=== PATIENT | female | born 1985 | race Hispanic/Latino ===

== ENCOUNTER 2018-04-07 17:33 | Outpatient (CLI) | payer MEDICAID ==
[2018-04-07 17:56] VITALS: BP 131/80
== END 2018-04-07 19:00 | disposition home or self-care (01) ==
LOC: TRG 17:33
PROVIDERS: ATTEND Obstetrics & Gynecology
DX: O47.03 False labor before 37 completed weeks of gestation, third trimester (principal); Z3A.36 36 weeks gestation of pregnancy

== ENCOUNTER 2018-04-22 18:26 | Inpatient (IN) | payer MEDICAID ==
--- NOTE | 2018-04-22 18:41 | History and Physical Report ---
History of Present Illness Date of examination: 04/22/18 Date of admission: 04/22/18 18:26 Chief complaint: here for IOL History of present illness: As per nurse extender Pat mina in the office today via phone call: received call from Dr. Sparrow @ [facility], patient turned in 24h urine with 394mg of protein. They recommend patient be delivered for mild pre-e. Hospital called and patient scheduled for PM induction tonight. Patient called and made aware of plan, she agrees to scheduled IOL at this time. Addressed issues with patient requesting primary c/s at last appointment - pt states she is OK with IOL tonight. Advised to eat prior to arrival. Dr. Boateng aware. Pt had discussed with MW wanting a primary c/s because she feared she would fail a MOI. I advised her that this is the best option to have a MOI and if she fails or if there is a maternal or obstetrical indication for c/s then she will have one. Pt expressed understanding and questions were addressed and answered. Pt was scheduled for IOL at 2030pm but in her excitement arrived early. I d/w pt and support person nature of serial IOL and what to expect and again all questions were addressed and answered. Pt not present at time of bedside discussion. I advised that she let the RN taking care of her know if she has any other questions. 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 Abnormal PAP: negative NAYELI Exposure: negative Infertility: negative Uterine Anomaly: negative Uterine Surgery (not C/S): negative Other Gynecologic Problems: negative Medical History Comments: PCOS-dx'd since age 18 Family Hx: DM Heart dz HTN Social Hx: no e/t/d Infection History Hx of STD: none Genetic History Congenital Heart Defect: Mom: no Dad: no Leilani Disease: Mom: no Dad: no Thalassemia Mom: no Dad: no Neural Tube Defect Mom: no Dad: no Down's Syndrome Mom: no Dad: no Joseluis-Sachs Mom: no Dad: no Sickle Cell Disease/Trait Mom: no Dad: no Hemophilia Mom: no Dad: no Muscular Dystrophy Mom: no Dad: no Cystic Fibrosis Mom: no Dad: no Traverse Chorea Mom: no Dad: no Mental Retardation Mom: no Dad: no Fragile X Mom: no Dad: no Other Genetic/Chromosomal Disorder Mom: no Dad: no Child w/other defect Mom: no Dad: no Enviromental Exposures Xray Exposure: no Medication, drug, or alcohol use since LMP: no Chemical/Other Exposure: no Exposure to Cat Liter: no Hx of Parvovirus (Fifth Disease): no Occupational Exposure to Children: none Active Medications (reviewed today): DIFLUCAN 150 MG ORAL TABLET (FLUCONAZOLE) 1 tab po times one Current Allergies (reviewed today): No known allergies Past History Past Medical History: other (see hpi) Past Surgical History: other (see hpi) 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 Negative: tenderness Deep Tendon Reflex Grade: Normal +2 - Obstetrical Cervical Dilatation: 0 (post/ and soft/ dimple palated at the ext os) Cervical Effacement Percentage: 60 station: -2 Uterine Contraction Pattern: Regular Uterine Tone Measurement Phase: Resting Uterine Contraction Intensity: Mild Results All other labs normal. Assessment and Plan - Patient Problems (1) 38 weeks gestation of Current Visit: Yes Status: Acute (2) Mild pre-eclampsia Current Visit: Yes Status: Acute Plan to address problem: - bps in office day of urine collection was normal and she has not had elevated blood pressures in the office. The 24hr protein was >300mg and hence her dz of pre e mild at best -serial IOl d/w pt and and all questions were addressed and answered.
[2018-04-22] MEDS ORDERED: ZOFRAN IV PRN (18:44)
[2018-04-22] MEDS ORDERED: BRETHINE IVP PRN (18:44)
[2018-04-22] MEDS ORDERED: XYLOCAINE 2% INFILTRATI ONE (18:44)
[2018-04-22] MEDS ORDERED: POLYCILLIN/NS 2 GM/100 ML 2 GM/100 ML BAG IV ONE (18:44)
[2018-04-22] MEDS ORDERED: ePHEDrine SULFATE IV PRN (18:44)
[2018-04-22] MEDS ORDERED: BRETHINE SUB-Q PRN (18:44)
[2018-04-22] MEDS ORDERED: MINERAL OIL PO PRN (18:44)
[2018-04-22] MEDS ORDERED: PITOCin/NS 20 UNIT/1000ML DRIP 20 UNITS/1,000 ML BAG IV SCH (19:00)
[2018-04-22] MEDS ORDERED: PITOCin/NS 30 UNIT/500ML 30 UNITS/500 ML BAG IV SCH (19:00)
[2018-04-22] MEDS ORDERED: CERVIDIL VG ONE (20:30)
[2018-04-22 21:35] LABS: Hematocrit 30.5 % (30.3-42.9); Hemoglobin 10.2 gm/dl (10.1-14.3); Mean Corpuscular HGB Conc 34 % (30-34); Mean Corpuscular Hemoglobin 28 pg (28-32); Mean Corpuscular Volume 84 fl (79-97); Platelet Count 292 K/mm3 (140-440); Red Blood Count 3.62 M/mm3 (3.65-5.03); Red Cell Distribution Width 14.4 % (13.2-15.2)
[2018-04-22 21:51] LABS: Bilirubin,Urine NEG (Negative); Blood,Urine SM (Negative); Color,Urine Yellow (Yellow); Mucus,Urine 2+ /HPF; Urobilinogen,Urine < 2.0 mg/dL (<2.0)
[2018-04-22 21:54] LABS: Alanine Aminotransferase 11 units/L (7-56); Uric Acid 5.2 mg/dL (3.5-7.6)
[2018-04-22] MEDS ORDERED: AMPICILLIN/NS 1 GM/50 ML 1 GM/50 ML BAG IV SCH (22:46)
[2018-04-23] MEDS: SUBLIMAZE IV PRN ×3 (01:33→06:36)
[2018-04-23] MEDS ORDERED: POLYCILLIN/NS 2 GM/100 ML 2 GM/100 ML BAG IV ONE (03:50)
[2018-04-23] MEDS: LACTATED RINGERS 1,000 ML IV SCH ×3 (04:01→10:06)
--- NOTE | 2018-04-23 05:48 | Progress Note ---
Assessment and Plan - Patient Problems (1) Mild pre-eclampsia Onset Date: ~04/23/18 Current Visit: Yes Status: Acute Qualifiers: Trimester: third trimester Qualified Code(s): O14.03 - Mild to moderate pre -eclampsia, third trimester Plan to address problem: Pt OOB to toilet when SROM occurred Clear fluid SVE 1,90,-1 Cervidil removed. Will get NST then OOB for AM care and diet. Plan to start pitocin when AM toilet & diet completed. All questions addressed and answered. Subjective - Subjective Date of service: 04/23/18 (called to room with c/o ROM) Patient reports: loss of fluid, contractions Objective - Vital Signs Vital Signs: Vital Signs - 12hr 04/22/18 04/22/18 04/22/18 19:51 19:56 19:58 Temperature 98.2 F Pulse Rate 80 74 78 Respiratory 18 Rate Blood Pressure 125/74 Blood Pressure 125/74 [Right] O2 Sat by Pulse 97 97 Oximetry 04/22/18 04/22/18 04/22/18 20:03 20:08 20:13 Temperature Pulse Rate 81 85 95 H Respiratory Rate Blood Pressure Blood Pressure [Right] O2 Sat by Pulse 97 98 97 Oximetry 04/22/18 04/22/18 04/22/18 20:18 20:23 20:28 Temperature Pulse Rate 86 86 85 Respiratory Rate Blood Pressure Blood Pressure [Right] O2 Sat by Pulse 97 96 97 Oximetry 04/22/18 04/22/18 04/22/18 21:33 21:38 21:43 Temperature Pulse Rate 71 84 83 Respiratory Rate Blood Pressure Blood Pressure [Right] O2 Sat by Pulse 98 99 98 Oximetry 04/22/18 04/22/18 04/22/18 21:48 21:53 21:58 Temperature Pulse Rate 75 83 87 Respiratory Rate Blood Pressure Blood Pressure [Right] O2 Sat by Pulse 98 98 98 Oximetry 04/22/18 04/22/18 04/22/18 22:03 22:08 22:13 Temperature Pulse Rate 84 84 74 Respiratory Rate Blood Pressure Blood Pressure [Right] O2 Sat by Pulse 98 99 98 Oximetry 04/22/18 04/22/18 04/22/18 22:18 22:23 22:28 Temperature Pulse Rate 75 75 75 Respiratory Rate Blood Pressure Blood Pressure [Right] O2 Sat by Pulse 98 98 97 Oximetry 04/22/18 04/22/18 04/22/18 22:33 22:37 22:38 Temperature Pulse Rate 73 76 73 Respiratory Rate Blood Pressure 134/76 Blood Pressure [Right] O2 Sat by Pulse 98 98 Oximetry 04/22/18 04/22/18 04/22/18 22:43 22:48 22:53 Temperature Pulse Rate 72 81 72 Respiratory Rate Blood Pressure Blood Pressure [Right] O2 Sat by Pulse 97 98 98 Oximetry 04/22/18 04/22/18 04/22/18 22:58 23:03 23:08 Temperature Pulse Rate 77 77 83 Respiratory Rate Blood Pressure Blood Pressure [Right] O2 Sat by Pulse 97 98 96 Oximetry 04/22/18 04/22/18 04/22/18 23:13 23:18 23:23 Temperature Pulse Rate 78 74 74 Respiratory Rate Blood Pressure Blood Pressure [Right] O2 Sat by Pulse 97 97 97 Oximetry 04/22/18 04/22/18 04/22/18 23:31 23:36 23:37 Temperature Pulse Rate 67 75 77 Respiratory Rate Blood Pressure 125/88 Blood Pressure [Right] O2 Sat by Pulse 98 98 Oximetry 04/22/18 04/22/18 04/22/18 23:41 23:46 23:51 Temperature Pulse Rate 77 76 72 Respiratory Rate Blood Pressure Blood Pressure [Right] O2 Sat by Pulse 98 97 97 Oximetry 04/22/18 04/23/18 04/23/18 23:56 00:01 00:06 Temperature Pulse Rate 69 68 71 Respiratory Rate Blood Pressure Blood Pressure [Right] O2 Sat by Pulse 97 98 98 Oximetry 04/23/18 04/23/18 04/23/18 00:11 00:16 00:21 Temperature Pulse Rate 69 80 74 Respiratory Rate Blood Pressure Blood Pressure [Right] O2 Sat by Pulse 98 98 97 Oximetry 04/23/18 04/23/18 04/23/18 00:26 00:31 00:36 Temperature Pulse Rate 71 66 71 Respiratory Rate Blood Pressure Blood Pressure [Right] O2 Sat by Pulse 98 97 98 Oximetry 04/23/18 04/23/18 04/23/18 00:37 00:41 00:46 Temperature Pulse Rate 68 77 67 Respiratory Rate Blood Pressure 128/75 Blood Pressure [Right] O2 Sat by Pulse 97 97 Oximetry 04/23/18 04/23/18 04/23/18 00:51 00:56 01:01 Temperature Pulse Rate 68 69 63 Respiratory Rate Blood Pressure Blood Pressure [Right] O2 Sat by Pulse 98 97 98 Oximetry 04/23/18 04/23/18 04/23/18 01:06 01:11 01:16 Temperature Pulse Rate 67 69 73 Respiratory Rate Blood Pressure Blood Pressure [Right] O2 Sat by Pulse 96 97 98 Oximetry 04/23/18 04/23/18 04/23/18 01:21 01:26 01:31 Temperature Pulse Rate 64 67 64 Respiratory Rate Blood Pressure Blood Pressure [Right] O2 Sat by Pulse 97 98 98 Oximetry 04/23/18 04/23/18 04/23/18 01:33 01:38 01:43 Temperature Pulse Rate 66 56 L Respiratory 18 Rate Blood Pressure 155/112 145/77 Blood Pressure [Right] O2 Sat by Pulse 99 98 Oximetry 04/23/18 04/23/18 04/23/18 01:48 01:53 01:58 Temperature Pulse Rate 63 65 69 Respiratory Rate Blood Pressure Blood Pressure [Right] O2 Sat by Pulse 97 97 97 Oximetry 04/23/18 04/23/18 04/23/18 02:03 02:08 02:13 Temperature Pulse Rate 58 L 61 66 Respiratory 18 Rate Blood Pressure Blood Pressure [Right] O2 Sat by Pulse 97 97 97 Oximetry 04/23/18 04/23/18 04/23/18 02:14 02:18 02:23 Temperature Pulse Rate 67 63 59 L Respiratory Rate Blood Pressure 136/83 Blood Pressure [Right] O2 Sat by Pulse 98 99 Oximetry 04/23/18 04/23/18 04/23/18 02:28 02:33 02:38 Temperature Pulse Rate 64 61 60 Respiratory Rate Blood Pressure Blood Pressure [Right] O2 Sat by Pulse 98 98 100 Oximetry 04/23/18 04/23/18 04/23/18 02:43 02:45 02:48 Temperature Pulse Rate 70 56 L 69 Respiratory Rate Blood Pressure 137/77 Blood Pressure [Right] O2 Sat by Pulse 100 100 Oximetry 04/23/18 04/23/18 04/23/18 02:53 02:59 03:04 Temperature Pulse Rate 73 67 60 Respiratory Rate Blood Pressure Blood Pressure [Right] O2 Sat by Pulse 99 99 100 Oximetry 04/23/18 04/23/18 04/23/18 03:09 03:14 03:19 Temperature Pulse Rate 73 69 67 Respiratory Rate Blood Pressure Blood Pressure [Right] O2 Sat by Pulse 99 98 99 Oximetry 04/23/18 04/23/18 04/23/18 03:24 03:29 03:34 Temperature Pulse Rate 69 78 69 Respiratory Rate Blood Pressure Blood Pressure [Right] O2 Sat by Pulse 98 98 100 Oximetry 04/23/18 04/23/18 04/23/18 03:39 03:45 04:05 Temperature Pulse Rate 74 63 Respiratory 18 Rate Blood Pressure Blood Pressure [Right] O2 Sat by Pulse 99 98 Oximetry 04/23/18 04/23/18 04/23/18 04:10 04:14 04:15 Temperature Pulse Rate 60 67 65 Respiratory Rate Blood Pressure 128/80 Blood Pressure [Right] O2 Sat by Pulse 97 97 Oximetry 04/23/18 04/23/18 04/23/18 04:20 04:25 04:30 Temperature Pulse Rate 62 65 69 Respiratory Rate Blood Pressure Blood Pressure [Right] O2 Sat by Pulse 98 98 97 Oximetry 04/23/18 04/23/18 04/23/18 04:35 04:40 04:45 Temperature Pulse Rate 67 64 71 Respiratory Rate Blood Pressure Blood Pressure [Right] O2 Sat by Pulse 98 99 99 Oximetry 04/23/18 04/23/18 04/23/18 04:50 04:55 05:00 Temperature Pulse Rate 69 68 62 Respiratory Rate Blood Pressure Blood Pressure [Right] O2 Sat by Pulse 98 97 98 Oximetry 04/23/18 04/23/18 04/23/18 05:05 05:10 05:12 Temperature Pulse Rate 71 69 67 Respiratory Rate Blood Pressure 154/82 Blood Pressure [Right] O2 Sat by Pulse 98 98 Oximetry 04/23/18 04/23/18 04/23/18 05:15 05:20 05:25 Temperature Pulse Rate 69 67 71 Respiratory Rate Blood Pressure Blood Pressure [Right] O2 Sat by Pulse 99 100 96 Oximetry - Exam Breasts: deferred Cardiovascular: Regular rate Lungs: Clear to auscultation, Normal air movement Abdomen: Present: normal appearance, soft. Absent: distention, tenderness Uterus: Present: normal FHR: auscultation normal, category 1 Uterine Contraction Monitor Mode: External Cervical Dilatation: 1 (SROM clear fluid) Cervical Effacement Percentage: 90 (cervidil removed) station: -1 Uterine Contraction Pattern: Regular Uterine Tone Measurement Phase: Resting Uterine Contraction Intensity: Mild Extremities: edema Deep Tendon Reflex Grade: Normal +2 - Labs Labs: Abnormal Labs 04/22/18 04/22/18 21:13 21:13 WBC 12.9 H RBC 3.62 L Lactate Dehydrogenase 214 H Laboratory Results - last 24 hr 04/22/18 04/22/18 04/22/18 21:13 21:13 21:13 WBC 12.9 H RBC 3.62 L Hgb 10.2 Hct 30.5 MCV 84 MCH 28 MCHC 34 RDW 14.4 Plt Count 292 Creatinine Estimated GFR Uric Acid AST ALT Lactate Dehydrogenase Urine Color Yellow Urine Turbidity Clear Urine pH 5.0 Ur Specific [place] 1.026 Urine Protein 100 mg/dl Urine Glucose (UA) Neg Urine Ketones Neg Urine Blood Sm Urine Nitrite Neg Urine Bilirubin Neg Urine Urobilinogen < 2.0 Ur Leukocyte Esterase Sm Urine WBC (Auto) 3.0 Urine RBC (Auto) 4.0 U Epithel Cells (Auto) 3.0 Urine Mucus 2+ Blood Type A POSITIVE Antibody Screen Negative 04/22/18 21:13 WBC RBC Hgb Hct MCV MCH MCHC RDW Plt Count Creatinine 0.7 Estimated GFR > 60 Uric Acid 5.2 AST 17 ALT 11 Lactate Dehydrogenase 214 H Urine Color Urine Turbidity Urine pH Ur Specific [place]kinson Urine Protein Urine Glucose (UA) Urine Ketones Urine Blood Urine Nitrite Urine Bilirubin Urine Urobilinogen Ur Leukocyte Esterase Urine WBC (Auto) Urine RBC (Auto) U Epithel Cells (Auto) Urine Mucus Blood Type Antibody Screen
[2018-04-23] MEDS ORDERED: PITOCin/NS 30 UNIT/500ML 30 UNITS/500 ML BAG IV SCH (08:00)
[2018-04-23] MEDS ORDERED: XYLOCAINE 2% INFILTRATI ONE (10:41)
--- NOTE | 2018-04-23 11:05 | Procedure Note ---
OB Delivery Note - Delivery Date of Delivery: 04/23/18 Physical Director: VINNY ESCALANTE Estimated blood loss: 300cc - Vaginal Delivery presentation: vertex Delivery position: OA Intrapartum events: preeclampsia Delivery induction: cervidil Delivery augmentation: pitocin Delivery monitor: external FHT, external uterine Route of delivery: Delivery placenta: spontaneous Delivery cord: nuchal cord, 3 umbilical vessels Episiotomy: none Delivery laceration: 2nd degree Delivery repair: vicryl Anesthesia: local, intravenous Delivery comments: Pt complete on my arrival live born female over intact perineum CAN X 1 reduced. Baby skin to skin with mom. Placenta and membrane del complete and intact, 3 vessel cord. Pit IVFs. 2nd degree laceration Repaired with 3-0 vicryl over lidocaine. 8/9, EBL 300, Wgt 6-14. Mom and baby remain LDR stable - Infant A at 1 minute: 8 at 5 minutes: 9 Infant Gender: Female (wgt 6-14)
[2018-04-23] MEDS ORDERED: BENADRYL PO PRN (11:08)
[2018-04-23] MEDS ORDERED: TUCKS PAD TP PRN (11:08)
[2018-04-23] MEDS ORDERED: LANSINOH TP PRN (11:08)
[2018-04-23] MEDS ORDERED: PHENERGAN PO PRN (11:08)
[2018-04-23] MEDS ORDERED: TYLENOL PO PRN (11:08)
[2018-04-23] MEDS ORDERED: MILK OF MAGNESIA PO PRN (11:08)
[2018-04-23] MEDS ORDERED: DULCOLAX PR PRN (11:08)
[2018-04-23] MEDS ORDERED: MOTRIN PO SCH (12:00)
[2018-04-23] MEDS ORDERED: SODIUM CHLORIDE FLUSH SYRINGE 10 ML IV NR (12:00)
[2018-04-23] MEDS: MOTRIN PO SCH ×2 (15:00→23:12)
[2018-04-23 23:05] LABS: Hematocrit 27.1 % (30.3-42.9)
[2018-04-24] MEDS ORDERED: BOOSTRIX IM ONE (06:00)
--- NOTE | 2018-04-24 06:12 | Discharge Summary ---
Providers - Providers Date of Admission: 04/22/18 18:26 Date of discharge: 04/24/18 (pt desires d/c if baby can go) Attending physician: JOEL JACOBS Primary care physician: JOEL JACOBS Hospitalization Reason for admission: induction of labor Delivery: Episiotomy: none Laceration: 2nd degree Incision: normal, dry, edematous (slight), intact Other procedures: none complications: none Discharge diagnosis: IUP at term delivered [place] baby: female Hospital course: uncomplicated vaginal delivery Pt awake No c/o voiced. She and SO desire d/c home today if possible. VSS FF below umb Lochia scant perineum slight swelling intact H&H 08/21 drop r/t blood loss from delivery Pt is asymptomatic Doing well s/p vag delivery P: d/c today with instructions RTO 4 weeks. Call with any CARDONA, blurred vision, chest pain. Condition at discharge: Good Disposition: DC-01 TO HOME OR SELFCARE - Discharge Diagnoses (1) Mild pre-eclampsia Status: Acute Qualifiers: Trimester: third trimester Qualified Code(s): O14.03 - Mild to moderate pre -eclampsia, third trimester Comment: Call with any CARDONA, blurred vision, chest pain (2) Spontaneous vaginal delivery Status: Acute Comment: RTO 4 weeks PP care Plan - Provider Discharge Summary Activity: routine, no sex for 6 weeks, no heavy lifting 4 weeks, no strenuous exercise Diet: other (no salt) Instructions: routine Additional instructions: [] Smoking cessation referral if applicable(refer to patient education folder for contact #) [] Refer to [facility]'s [facility] Booklet Call your doctor immediately for: * Fever > 100.5 * Heavy vaginal bleeding ( >1 pad per hour) * Severe persistent headache * Shortness of breath * Reddened, hot, painful area to leg or breast * Drainage or odor from incision. * Keep incision clean and dry at all times and follow doctor's instructions regarding bathing/showering - Follow up plan Follow up: JOEL AJCOBS MD [Primary Care Provider] - 05/22/18 (Congratulations! Please call [phone] to schedule your visit in 4 weeks. Call with headache unrelieved with Tylenol, blurred vision, chest pain. Take medication as prescribed. Call with any concerns.)
[2018-04-24] MEDS: MOTRIN PO SCH ×3 (10:45→23:51)
[2018-04-24] MEDS: COLACE PO SCH ×2 (11:01→21:32)
[2018-04-24] MEDS ORDERED: M-M-R II VACCINE SUB-Q ONE (12:00)
[2018-04-24] MEDS: NORCO 5/325 PO PRN ×2 (14:56→21:32)
[2018-04-25] MEDS: MOTRIN PO SCH (09:23)
[2018-04-25] MEDS: NORCO 5/325 PO PRN (09:23)
[2018-04-25] MEDS: COLACE PO SCH (09:23)
[2018-04-25 21:06] VITALS: BP 126/59
== END 2018-04-25 14:25 | disposition home or self-care (01) | DRG 774 ==
LOC: LD 18:26 → OB 04-23 13:42
PROVIDERS: ADMIT Obstetrics & Gynecology; ATTEND Obstetrics & Gynecology
PROC: 0KQM0ZZ Repair Perineum Muscle, Open Approach (ICD-10-PCS; principal; 2018-04-23)
PROC: 10E0XZZ Delivery of Products of Conception, External Approach (ICD-10-PCS; 2018-04-23)
PROC: 3E0234Z Introduction of Serum, Toxoid and Vaccine into Muscle, Percutaneous Approach (ICD-10-PCS; 2018-04-24)
DX: O14.04 Mild to moderate pre-eclampsia, complicating childbirth (principal); O70.1 Second degree perineal laceration during delivery; Z3A.38 38 weeks gestation of pregnancy; Z82.49 Family history of ischemic heart disease and other diseases of the circulatory system; Z83.3 Family history of diabetes mellitus; Z37.0 Single live birth; Z23 Encounter for immunization; O99.824 Streptococcus B carrier state complicating childbirth; O69.81X0 Labor and delivery complicated by cord around neck, without compression, not applicable or unspecified
CPT/HCPCS: 36415; 59200; 81001; 82565; 83615; 84450; 84460; 84550; 85014; 85018; 85027; 86592; 86850; 86900; 86901; 88307; 90471; 90715; 99211; G0463; J0290; J2405; J2590; J3010; J7120

== ENCOUNTER 2020-08-23 09:51 | Observation (INO) | payer BC, MEDICAID, OTHER ==
--- NOTE | 2020-08-19 13:55 | History and Physical Report ---
History of Present Illness Date of examination: 08/15/20 Date of admission: 08/23/2020 Chief complaint: here for surgery History of present illness: Visit Type: Pre-Op CC: pre op. History of Present Illness: pt presents for Pre op visit: HOLLIEH..................... .................................................Lorie Fatima August 16, 2020 9:16 AM Mask, Patient denies fever, cough, shortness of breath and exposure to COVID-19. Pt here for per op for LAVH, BS and possible cystectomy and any other indicated procedures. On previous sonogram pt was note to have an adnexal cyst present. I advised that it was small and would be evaluated in 6 wks or at time of surgery depending on which event came first. The cyst on sono appeared to be benign but again I advised that without tissue path there is no way of know this. Pt expressed understanidng. Pt has pelvic pain. I advised that the hysterectomy or removal of the uterus will treat most if not all of her bleeding but this is not the treatment for her pain and that her pain may improve, stay the same or worsen. She expressed uderstanding. All risk/benefits/alternatives were d/w pt and questions were addressed and answered. Consents signed and placed on the chart. 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 Surgery (not C/S): negative Operations: elbo/ left foot D&C Abnormal PAP: No Uterine Anomaly: negative NAYELI Exposure: negative Infertility: negative Infection History HIV Risk Eval: no Hx of STD: none Active Medications (reviewed today): ORILISSA 150 MG ORAL TABLET (ELAGOLIX SODIUM) 1 po daily NAPROSYN 500 MG ORAL TABLET (NAPROXEN) 1 tab po BID prn pain VENLAFAXINE () Current Allergies (reviewed today): No known allergies Past Medical History: Reviewed history from 11/07/2017 and no changes required: Negative Past Medical History Past Surgical History: Reviewed history from 11/07/2017 and no changes required: elbo/ left foot D&C Family History Summary: Reviewed history and no changes required: 08/19/2020 General Comments - FH: DM Heart dz HTN Social History: Reviewed history from 07/01/2020 and no changes required: no e/t/d -femlae partner Smoking History: Patient has never smoked. Risk Factors: Smoked Tobacco Use: Never smoker Smokeless Tobacco Use: Never Drug use: no HIV high-risk behavior: no Alcohol use: no Exercise: no Seatbelt use: 100 % PAP Smear History: Date of Last PAP Smear: 08/27/2019 Review of Systems See HPI [Labs In-House] Physical Exam Appearance: well developed, well nourished, no acute distress Other Exams Breast exam: no masses or nipple discharge Lungs: no rales, rhonchi, or wheezes Abdomen: soft, non-tender, no masses, bowel sounds normal Extremities: normal alignment, no joint enlargement, crepitus, masses or tenderness; normal tone and strength Genitourinary Exam Comments: deferred until EUA Past History Past Medical History: other (see hpi) Past Surgical History: other (see hpi) 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) Family/Genetic History: other (see hpi) - Obstetrical History : 1 Medications and Allergies Allergies Allergy/AdvReac Type Severity Reaction Status Date / Time No Known Allergies Allergy Unverified 08/16/20 17:51 Home Medications Medication Instructions Recorded Confirmed Last Taken Type Naproxen [Naprosyn] 500 mg PO BID PRN 08/16/20 08/16/20 Unknown History Venlafaxine HCl [Venlafaxin ER] 75 mg PO QDAY 08/16/20 08/16/20 Unknown History Review of Systems All systems: negative - Physical Exam Cardiovascular: Normal S1, Normal S2 Lungs: Positive: Clear to auscultation, Normal air movement Abdomen: Positive: normal appearance, soft. Negative: distention, tenderness, guarding Genitourinary (Female): Positive: other (deferred until EUA) Deep Tendon Reflex Grade: Normal +2 Results All other labs normal. Assessment and Plan - Patient Problems (1) Menorrhagia Status: Acute Qualifiers: Menorrhagia type: with regular cycle Qualified Code(s): N92.0 - Excessive and frequent menstruation with regular cycle Plan to address problem: -to OR for LAVH/BS and any other indicated procedures -consent signed and placed on chart. (2) Dysmenorrhea Status: Acute Plan to address problem: -left adnexal cyst noted. Will evaluated at time of sx or in 6 wks which ever comes first -desires to keep ovaries if normal -d/w that she may continue to have pain even with uterus removed just not the heavy bleeding. She expressed understanding and still desires lavh.
--- NOTE | 2020-08-22 08:48 | Anesthesia Consultation ---
<GRUPO GARCIA - Last Filed: 08/22/20 08:47> Anesthesia Consult and Med Hx Date of service: 08/22/20 - Airway Anesthetic Teeth Evaluation: Good ROM Head & Neck: Adequate Mental/Hyoid Distance: Adequate Mallampati Class: Class II Intubation Access Assessment: Probably Good - Pre-Operative Health Status ASA Pre-Surgery Classification: ASA3 Proposed Anesthetic Plan: General - Pulmonary Hx Asthma: No COPD: No Hx Pneumonia: No - Cardiovascular System Hx Hypertension: No - Central Nervous System Hx Seizures: No Hx Psychiatric Problems: Yes - Endocrine Hx Renal Disease: No Hx End Stage Renal Disease: No Hx Hypothyroidism: No Hx Hyperthyroidism: No - Hematic Hx Anemia: Yes Hx Sickle Cell Disease: No - Other Systems Hx Alcohol Use: Yes (Occas) Hx Cancer: No Hx Obesity: Yes (Morbid obesity BMI 40.6) <OMAR RUIZ - Last Filed: 08/23/20 10:41> Anesthesia Consult and Med Hx - Additional Comments Anesthesia Medical History Comments: Consented for postop TAP block if procedure converts to open.
[2020-08-22 08:51] LABS: Basophils # (Auto) 0.1 K/mm3 (0.0-0.1); Basophils % (Auto) 1.2 % (0.0-1.8); Eosinophils # (Auto) 0.1 K/mm3 (0.0-0.4); Hematocrit 33.8 % (30.3-42.9); Lymphocytes # (Auto) 2.1 K/mm3 (1.2-5.4); Lymphocytes % (Auto) 32.6 % (13.4-35.0); Mean Corpuscular HGB Conc 35 % (30-34); Mean Corpuscular Volume 84 fl (79-97); Monocytes # (Auto) 0.5 K/mm3 (0.0-0.8); Monocytes % (Auto) 7.2 % (0.0-7.3); Platelet Count 260 K/mm3 (140-440); Red Blood Count 4.01 M/mm3 (3.65-5.03); Red Cell Distribution Width 13.4 % (13.2-15.2)
[2020-08-22 09:02] LABS: Blood Urea Nitrogen 8 mg/dL (7-17); Calcium 8.8 mg/dL (8.4-10.2); Hemolysis Index 0
[2020-08-22 09:29] LABS: BUN/Creatinine Ratio 16
[~2020-08-23 09:51] MED LIST: CELECOXIB 200 MG CAP PO NR; FAMOTIDINE 20 MG/2 ML INJ IV NR; GABAPENTIN 300 MG CAP PO NR; MIDAZOLAM 2 MG/2 ML INJ IV NR; ceFAZolin/Water 2 GM/20 ML 2 GM/20 ML SYRINGE IV NR
[2020-08-23] MEDS ORDERED: ONDANSETRON 4 MG/2 ML INJ IV PRN (10:26)
[2020-08-23] MEDS ORDERED: HYDROmorphone 1 MG/1 ML INJ IV PRN (10:26)
[2020-08-23] MEDS: LACTATED RINGERS 1,000 ML IV SCH ×2 (10:35→18:32)
--- NOTE | 2020-08-23 10:42 | Anesthesia Day of Surgery ---
Anesthesia Day of Surgery - Day of Surgery Patient Examined: Yes Patient H&P Reviewed: Yes Patient is NPO: Yes
[2020-08-23] MEDS ORDERED: BUPIVACAINE/PF (0.5%) 5 MG/1 ML 30 ML VIAL INFILTRATI ONE ×2 (10:54→12:54)
[2020-08-23] MEDS ORDERED: VASOPRESSIN 20 UNIT/1 ML INJ ONE (10:54)
[2020-08-23] MEDS ORDERED: SODIUM CHLORIDE 0.9% 100 ML ONE (10:54)
[2020-08-23] MEDS ORDERED: NEOSTIGMINE 10MG/10 ML INJ MDV ONE (10:56)
[2020-08-23] MEDS ORDERED: GLYCOPYRROLATE 0.4 MG/2 ML INJ ONE (10:56)
[2020-08-23] MEDS ORDERED: ePHEDrine SULFATE 50 MG/1 ML INJ ONE (10:56)
[2020-08-23] MEDS ORDERED: LIDOCAINE MPF (2%) 20 MG/1 ML VIAL 5 ML ONE (10:56)
[2020-08-23] MEDS ORDERED: fentaNYL 100 MCG/2 ML INJ ONE (10:56)
[2020-08-23] MEDS ORDERED: ROCURONIUM 50 MG/5 ML INJ IV ONE ×2 (10:56→13:41)
[2020-08-23] MEDS ORDERED: PHENYLEPHRINE/NS 1,000 MCG/10 ML SYRINGE (OR USE) IV ONE (10:56)
[2020-08-23] MEDS ORDERED: SUCCINYLCHOLINE CHLORIDE 200 MG/10 ML INJ MDV ONE (10:56)
[2020-08-23] MEDS ORDERED: ONDANSETRON 4 MG/2 ML INJ ONE (10:56)
[2020-08-23] MEDS ORDERED: dexAMETHasone 20 MG/5 ML VIAL ONE (10:56)
[2020-08-23] MEDS ORDERED: propofoL 200 MG/20 ML VIAL IV ONE (10:56)
[2020-08-23] MEDS ORDERED: HYDROmorphone 1 MG/1 ML INJ ONE ×2 (11:56→13:40)
[2020-08-23] MEDS ORDERED: VASOPRESSIN 20 UNIT/1 ML INJ IM ONE (12:55)
[2020-08-23] MEDS ORDERED: SODIUM CHLORIDE 0.9% IRR 1,500 ML BOTTLE IR ONE (12:56)
[2020-08-23] MEDS ORDERED: SODIUM CHLORIDE 0.9% IRRIG SOLN 2000 ML IR ONE (13:39)
[2020-08-23] MEDS ORDERED: LACTATED RINGERS 1,000 ML ONE (13:41)
--- NOTE | 2020-08-23 14:39 | Operative Report ---
Operative Report Operative Report: Date of procedure: 08/23/2020 Pre-operative diagnosis: Dysmenorrhea Menorrhagia Adnexal mass Post-operative diagnosis: Same plus evidence of endometriosis Procedure name(s): Laparoscopic assisted vaginal hysterectomy Bilateral salpingectomy Right oophorectomy Surgeon: Zaira Boateng MD [employer] Specialist: Dr. Cassie Park Anesthesia: General endotracheal anesthesia EBL: 100 mL Urine output: 500 mL of clear urine out at end of procedure Fluids: 1100 mL Findings: Cyst on the right ovary believed to be a endometrioma Normal fallopian tubes bilaterally Normal uterus however appear globular suggestive of adenomyosis Several spots of what appeared to be endometrial in plants no biopsies were taken at this time. But appear to be classic findings for endometrial "powder hester". Indications: Patient presents for scheduled laparoscopic-assisted vaginal hysterectomy with bilateral salpingectomy and any other indicated procedures. All risks benefits and alternatives were discussed with the patient. Consents were signed and placed on the chart. Procedure: Patient was taken to the operating room where she was placed under general endotracheal anesthesia. She was then prepped and draped in sterile fashion. It was at this point that the small 58.com uterine manipulator was placed inside of the uterus after the uterus was sounded to approximately 10 cm. Garzon catheter was also placed at this time. Attention was then turned to the umbilicus in which a supraumbilical incision was made. Under direct visualization the 5 mm trocar was placed inside the peritoneum the peritoneum was then insufflated. As at this point that the laparoscopic portion of the procedure was performed. 1 lateral 5 mm and 1 medial 8 mm ports were also placed under direct visualization. Using the tripolar instrument the upper pedicles were cauterized and transected to the including round ligament with excellent hemostasis noted bilaterally. Attention was then turned to the right ovary in which what appeared to be a chocolate cyst was present. It was at this point that the infundibulopelvic ligament was cauterized and transected and the ovary was removed through extension of the 8 mm port in its entirety. The cyst did rupture upon removal of what appeared to be clear fluid. Excellent hemostasis was noted Attention was then turned vaginally. A weighted speculum was placed into the vagina and the cervix was grasped with a single-tooth tenaculum 2. The cervix was then injected circumferentially with Pitressin. The cervix was then circumferentially incised with the scalpel and the bladder dissected off of the pubovesical cervical fascia anteriorly with a sponge stick and Metzen shai scissors. The same procedure was performed posteriorly and the posterior cul-de-sac was entered into sharply without difficulty. At this point a Ivnny Clamp was placed over the uterosacral ligaments on either side. These were then transected and suture ligated with 0 Vicryl. Hemostasis was assured. The cardinal ligaments were then clamped on both sides transected and suture ligated in similar fashion. The uterine arteries were then serially clamped with Vinny clamps transected and suture ligated on both sides. Excellent hemostasis was visualized. After it was clear that the uterus had been completely from all pedicles the uterus was removed vaginally intact with cervix intact. The vaginal cuff angles were closed with figure of 8 stitches of 0 Vicryl on both sides. The peritoneum was incorporated in the stitching of the vaginal cuff. A series of interrupted figure of 8 sutures using 0 Vicryl were used to close the entire vaginal cuff. Excellent hemostasis was noted. The vagina was then irrigated copiously. Attention was then turned laparoscopically at which time. Again all pedicles were noted to be hemostatic. Pelvis was copiously irrigated. All instruments were then removed from the abdomen and the vagina. All gas was released from the abdomen. The abdominal incisions were closed using 4-0 Monocryl. All of the abdominal incisions were injected with Marcaine without epi. Patient tolerated the procedure well sponge lap and needle counts were all correct 3 the patient was taken to the recovery room awake and in stable cond ition.
[2020-08-23] MEDS ORDERED: ACETAMINOPHEN 325 MG TAB PO PRN (15:00)
[2020-08-23] MEDS: KETOROLAC 30 MG/1 ML INJ IV SCH ×2 (16:05→22:27)
--- NOTE | 2020-08-23 16:14 | Post Anesthesia Evaluation ---
- Post Anesthesia Evaluation Patient Participated: Yes Airway Patent: Yes Stable Respiratory Function: Yes Nausea/Vomiting: No Temp > 96.8F: Yes Pain Manageable: Yes Adequeate Hydration: Yes Anesthesia Complications: No
[2020-08-23] MEDS ORDERED: MAGNESIUM HYDROXIDE (MOM) ORAL LIQD UDC PO PRN (16:29)
[2020-08-23] MEDS: ceFAZolin/NS 1 GM/50 ML 1 GM/50 ML BAG IV SCH (18:28)
--- NOTE | 2020-08-23 21:30 | Progress Note ---
Assessment and Plan - Patient Problems (1) Menorrhagia Current Visit: No Status: Acute Qualifiers: Menorrhagia type: with regular cycle Qualified Code(s): N92.0 - Excessive and frequent menstruation with regular cycle (2) Dysmenorrhea Current Visit: No Status: Acute (3) Status post laparoscopic assisted vaginal hysterectomy (LAVH) Current Visit: Yes Status: Acute Plan to address problem: -routine post op care -ADAT -start po pain meds in the am -d/c home tomorrow if remains stable and afebrile. Subjective Date of service: 08/23/20 (Post op Check) Principal diagnosis: POD #0x/p LAVH, BS. RO Interval history: Pt doing well. Findings of sx again d/w pt and her . All questions were addressed and answered.Pt does c/o incisional pain at this time. Orders placed for prn IV meds until taking pt. Objective - Constitutional Vitals: Vital Signs - 12hr 08/23/20 08/23/20 08/23/20 10:05 10:20 14:21 Temperature 98.2 F 97.5 F L Pulse Rate 82 87 Respiratory 16 20 14 Rate Blood Pressure 136/89 156/92 O2 Sat by Pulse 98 100 Oximetry 08/23/20 08/23/20 08/23/20 14:26 14:31 14:36 Temperature Pulse Rate 74 73 80 Respiratory 12 12 14 Rate Blood Pressure 155/77 145/78 137/72 O2 Sat by Pulse 98 98 98 Oximetry 08/23/20 08/23/20 15:19 15:21 Temperature 97.3 F L Pulse Rate 63 62 Respiratory 14 Rate Blood Pressure 120/61 O2 Sat by Pulse 91 91 Oximetry - Respiratory Respiratory effort: normal - Gastrointestinal General gastrointestinal: Present: deferred, non-tender, non-distended, other (all incisions are c/d/i) - Labs CBC & Chem 7: 08/22/20 08:30 08/22/20 08:30 Medications & Allergies - Medications Allergies/Adverse Reactions: Allergies No Known Allergies Allergy (Unverified 08/16/20 17:51) Home Medications: Home Medications Medication Instructions Recorded Confirmed Last Taken Type Naproxen [Naprosyn] 500 mg PO BID PRN 08/16/20 08/23/20 08/21/20 09:00 History Venlafaxine HCl [Venlafaxin ER] 75 mg PO QDAY 08/16/20 08/23/20 08/22/20 20:00 History Ibuprofen [Motrin 800 MG tab] 800 mg PO Q8HR PRN #30 tablet 08/23/20 Unknown Rx oxyCODONE /ACETAMINOPHEN [Percocet 1 tab PO Q4HR #30 tab 08/23/20 Unknown Rx 5/325] Active Medications: Generic Name Dose Route Start Last Admin Trade Name Freq PRN Reason Stop Dose Admin Acetaminophen 650 mg 08/23/20 15:00 Tylenol PO Q4H PRN Pain, Mild (1-3) Hydrocodone Bitart/Acetaminophen 2 each 08/24/20 06:00 [place] 5/325 PO Q6H PRN Pain, Moderate (4-6) Celecoxib 200 mg 08/23/20 06:00 08/23/20 10:20 Celebrex PO 08/23/20 22:00 200 mg PREOP NR Administration Gabapentin 600 mg 08/23/20 06:00 08/23/20 10:20 Gabapentin PO 08/23/20 22:00 600 mg PREOP NR Administration Hydromorphone HCl 0.5 mg 08/23/20 10:26 Dilaudid IV 08/23/20 22:00 Q10MIN PRN Pain , Severe (7-10) Cefazolin Sodium 2 gm in 20 mls @ 80 mls/hr 08/23/20 06:00 Ancef/Sterile Water 2 Gm/20 Ml IV 08/23/20 23:59 PREOP NR Protocol Lactated Ringer's 1,000 mls @ 100 mls/hr 08/23/20 07:00 08/23/20 18:32 Lactated Ringers IV 100 mls/hr DIRECT JUANITO Administration Cefazolin Sodium 1 gm in 50 mls @ 100 mls/hr 08/23/20 18:00 08/23/20 18:28 Ancef/Ns 1 Gm/50 Ml IV 08/24/20 02:29 100 mls/hr Q8H JUANITO Administration Protocol Ibuprofen 800 mg 08/24/20 06:00 Ibuprofen PO Q6H PRN Pain, Mild (1-3) Ketorolac Tromethamine 30 mg 08/23/20 15:00 08/23/20 16:05 Toradol IV 08/24/20 06:00 30 mg Q6H JUANITO Administration Magnesium Hydroxide 30 ml 08/23/20 16:29 Milk Of Magnesia PO Q4H PRN Constipation Midazolam HCl 2 mg 08/23/20 07:00 08/23/20 10:45 Versed IV 08/23/20 23:59 2 mg PREOP NR Administration Morphine Sulfate 2 mg 08/23/20 21:25 Morphine IV Q6HR PRN Pain, Moderate (4-6)
[2020-08-23] MEDS: MORPHINE 2 MG/1 ML INJ IV PRN (21:31)
[2020-08-24] MEDS: LACTATED RINGERS 1,000 ML IV SCH (03:12)
[2020-08-24] MEDS: ceFAZolin/NS 1 GM/50 ML 1 GM/50 ML BAG IV SCH (03:16)
[2020-08-24] MEDS: MORPHINE 2 MG/1 ML INJ IV PRN (03:17)
[2020-08-24 05:25] LABS: Hematocrit 33.5 % (30.3-42.9); Hemoglobin 11.3 gm/dl (10.1-14.3)
[2020-08-24] MEDS ORDERED: IBUPROFEN 800 MG TAB PO PRN (06:00)
[2020-08-24] MEDS ORDERED: HYDROcodone/ACETAMINOPHEN 5-325 MG TAB PO PRN (06:00)
[2020-08-24] MEDS: KETOROLAC 30 MG/1 ML INJ IV SCH (06:57)
--- NOTE | 2020-08-24 12:53 | Discharge Summary ---
Providers - Providers Date of Admission: 08/23/20 14:24 Date of discharge: 08/24/20 Attending physician: JOEL JACOBS Hospitalization Reason for admission: other (admitted for LAVH WITH BS) Procedure: other (LAVH WITH BS) Procedure details: SEE OP NOTE Incision: normal, dry, intact Hospital course: PT ADMITTED FOR ABOVE STATED PROCEDURE. PT HAD LAVH WITH BS AND RO. PT HAD ROUTINE POST OP CARE. WILL BE D/C HOME TODAY WITH F/U IN THE OFFICE IN ONE WEEK. Condition at discharge: Good Disposition: DC-01 TO HOME OR SELFCARE - Discharge Diagnoses (1) Menorrhagia Status: Resolved Qualifiers: Menorrhagia type: with regular cycle Qualified Code(s): N92.0 - Excessive and frequent menstruation with regular cycle (2) Dysmenorrhea Status: Acute (3) Status post laparoscopic assisted vaginal hysterectomy (LAVH) Status: Acute Plan - Discharge Medications Prescriptions: Ibuprofen [Motrin 800 MG tab] 800 mg PO Q8HR PRN #30 tablet PRN Reason: Pain, Moderate (4-6) oxyCODONE /ACETAMINOPHEN [Percocet 5/325] 1 tab PO Q4HR #30 tab - Provider Discharge Summary Additional instructions: [] Smoking cessation referral if applicable(refer to patient education folder for contact #) [] Refer to [facility]'s [facility] Booklet Call your doctor immediately for: * Fever > 100.5 * Heavy vaginal bleeding ( >1 pad per hour) * Severe persistent headache * Shortness of breath * Reddened, hot, painful area to leg or breast * Drainage or odor from incision. * Keep incision clean and dry at all times and follow doctor's instructions regarding bathing/showering - Follow up plan Follow up: MARIE GARZA [Other] - 7 Days Forms: [facility] Discharge Summary
--- NOTE | 2020-08-24 12:53 | Progress Note ---
Assessment and Plan - Patient Problems (1) Menorrhagia Current Visit: No Status: Resolved Qualifiers: Menorrhagia type: with regular cycle Qualified Code(s): N92.0 - Excessive and frequent menstruation with regular cycle (2) Dysmenorrhea Current Visit: No Status: Acute (3) Status post laparoscopic assisted vaginal hysterectomy (LAVH) Current Visit: Yes Status: Acute Plan to address problem: -DOING WELL -D/C HOME TODAY -F/U IN OFFICE IN ONE WEEK AT SCHEDULED APPOINTMENT. Subjective - Subjective Date of service: 08/24/20 Principal diagnosis: POD #1 s/p CASEY, BS. RO Interval history: Pt tolerating a regular diet. ambulating well. Pt desires d/c home today. Patient reports: appetite normal, voiding normally, pain well controlled, flatus, no dizzy ambulation Objective - Vital Signs Latest vital signs: Vital Signs Temp Pulse Pulse Resp BP BP Pulse Ox 08/24/20 08:16 97.2 F L 60 18 126/71 99 08/24/20 06:57 18 08/24/20 04:57 97.7 F 53 L 18 131/68 100 08/24/20 03:17 18 08/24/20 00:31 98.0 F 64 20 115/70 98 08/23/20 22:57 18 08/23/20 22:27 18 08/23/20 22:01 18 08/23/20 22:00 80 18 08/23/20 21:31 18 08/23/20 20:03 97.2 F L 65 18 135/74 99 08/23/20 15:21 62 91 08/23/20 15:19 97.3 F L 63 14 120/61 91 08/23/20 14:36 80 14 137/72 98 08/23/20 14:31 73 12 145/78 98 08/23/20 14:26 74 12 155/77 98 08/23/20 14:21 97.5 F L 87 14 156/92 100 Intake and Output 08/23/20 08/24/20 08/24/20 22:59 06:59 14:59 Intake Total 1445 1106.667 240 Output Total 500 1500 1700 Balance 945 -393.333 -1460 Intake: IV 845 866.667 ANCEF/NS 1 GM/50 ML 1 gm 50 In 50 ml @ 100 mls/hr IV Q8H JUANITO Rx#:[id number] Lactated Ringers 1,000 ml 795 866.667 @ 100 mls/hr IV DIRECT [facility] Rx#:[id number] Oral 600 240 Intake, Free Water 240 Output: Urine 500 1500 1700 Indwelling Catheter 500 1500 1700 Other: Total, Intake Amount 240 240 Total, Output Amount 500 1500 1700 Voiding Method Indwelling Catheter - Exam Cardiovascular: Present: Normal S1, Normal S2 Lungs: Present: Normal air movement Abdomen: Present: normal appearance, soft, normal bowel sounds, other (incisions c/d/i no s/sx of infection). Absent: distention, tenderness, guarding Extremities: Present: normal. Absent: tenderness, edema Deep Tendon Reflex Grade: Normal +2 Incision: Present: normal, dry, intact (open to air C/D/I)
[2020-08-24 13:57] VITALS: BP 130/70
== END 2020-08-24 13:30 | disposition home or self-care (01) ==
LOC: OR 09:51 → OB 14:24
PROVIDERS: ADMIT Obstetrics & Gynecology; ATTEND Obstetrics & Gynecology
DX: N92.0 Excessive and frequent menstruation with regular cycle (principal); Z20.828 Contact with and (suspected) exposure to other viral communicable diseases; N94.6 Dysmenorrhea, unspecified; N80.1 Endometriosis of ovary; N83.201 Unspecified ovarian cyst, right side
CPT/HCPCS: 36415; 58552; 80048; 84703; 85014; 85018; 85025; 86850; 86900; 86901; 88302; 88305; 88307; 96361; 96365; 96366; 96372; 96375; 96376; A4217; G0378; J0330; J0690; J1100; J1170; J1885; J2250; J2270; J2370; J2405; J2704; J2710; J3010; J7120; U0003